=== PATIENT | male | born 1955 | race Caucasian/White ===

== ENCOUNTER 2024-01-31 11:18 | Emergency (ER) | payer MEDICARE, BC ==
[~2024-01-31] VITALS: Ht 170.2 cm; Wt 86.4 kg
[~2024-01-31 11:18] MED LIST: ASPI325T6 PO; ASPIRIN 81M81 MG/TA2; BETAPACE 120MG120 MG PO; CEPHALEXIN500 M1 PO; COREG 3.123.125 MG/T PO; ELIQUIS 5MG PO; LIPITOR 10MG10 MG PO; LIPITOR 40MG TA40 MG PO; MICROZIDE12.5 MG PO; NORCO 325 MG-7.1 TAB PO; PRINIVIL5 MG PO; ROXICODONE 55 MG/TAB PO; TOPROL XL 50MG50 MG PO; TYLENOL 500MG500 MG PO; ZESTRIL40 MG PO
[2024-01-31 11:28] VITALS: TEMP 97.7
[2024-01-31] MEDS ORDERED: NS 1,000 ML IV ONE (12:15)
[2024-01-31 12:49] LABS: HEMOGLOBIN 10.3 g/dl (13.5-18.0); MEAN CELL VOLUME 90 fl (80.0-100.0); MEAN CORPUSCULAR HEMOGLOBIN 30 pg (27-31); MEAN CORPUSCULAR HGB CONC 33 g/dl (33.0-37.0); MEAN PLATELET VOLUME 9.8 fl (7.4-10.4); PLATELET COUNT 261 K/mm3 (130-400); RED BLOOD COUNT 3.47 M/mm3 (4.20-5.60); REDCELL DISTRIBUTION WIDTH-CV 14.3 % (11.5-14.5)
[2024-01-31 12:52] LABS: HEMATOCRIT 31.1 % (42.0-52.0)
[2024-01-31 13:14] LABS: ALANINE AMINOTRANSFERASE 17 U/L (0-55); ALBUMIN 3.3 g/dL (3.4-4.8); ALKALINE PHOSPHATASE 46 U/L (40-150); ANION GAP 10 mmol/L (7-16); AST,SGOT 18 U/L (5-34); BILIRUBIN,TOTAL 1.8 mg/dL (0.2-1.2); BLOOD UREA NITROGEN 23 mg/dL (8-26); CALCIUM 9.7 mg/dL (8.4-10.2); CHLORIDE 100 mEq/L (98-107); CREATININE, serum 0.82 mg/dL (0.72-1.25); GLUCOSE 94 mg/dL (70-99); POTASSIUM 4.7 mEq/L (3.5-4.5); SODIUM 133 mEq/L (136-145); TOTAL PROTEIN 6.6 g/dl (6.2-8.1)
[2024-01-31 13:34] LABS: TROPONIN-I < 0.010 ng/mL (0.00-0.033)
[2024-01-31 13:55] LABS: MAGNESIUM 1.9 mg/dL (1.6-2.6)
[2024-01-31] MEDS ORDERED: Iohexol 300 - 100 ML VIAL IV ONE (14:23)
[2024-01-31] MEDS ORDERED: NS 100 ML IV SCH (14:28)
[2024-01-31] MEDS ORDERED: fentaNYL 50 MCG/ML 2 ML VIAL IV ONE (14:45)
[2024-01-31 15:06] LABS: PH 5.5 (5.0-8.5); URINE APPEARANCE CLEAR (CLEAR/HAZY); URINE BLOOD NEGATIVE (NEGATIVE); URINE COLOR YELLOW (YELLOW); URINE GLUCOSE NEGATIVE (NEGATIVE); URINE KETONE TRACE (NEGATIVE); URINE NITRATE NEGATIVE (NEGATIVE); URINE PROTEIN(semi-quant) NEGATIVE (NEGATIVE)
[2024-01-31 15:46] LABS: COLLECTION METHOD CLEAN CATCH
[2024-01-31 18:14] VITALS: BP 127/69; PULSE 84
== END 2024-01-31 18:20 | disposition home or self-care (01) ==
LOC: COL.ER 11:18
PROVIDERS: Family Medicine
DX: R55 Syncope and collapse (principal)
CPT/HCPCS: J3010; J7030; Q9967

== ENCOUNTER → 2024-02-19 | Outpatient (CLI) | payer MEDICARE ==
[~2024-02-19] MED LIST changes: +Albuterol 0.083% Neb Soln 2.5 MG/3 ML UD IH ONE; +Gadoterate 20 ML VIAL IV ONE; +Iohexol 300 - 100 ML VIAL IV ONE; +NS 100 ML IV SCH
== END ==
LOC: COL.RAD 12:12
DX: R06.02 Shortness of breath (principal); R55 Syncope and collapse; R42 Dizziness and giddiness; Z86.73 Personal history of transient ischemic attack (TIA), and cerebral infarction without residual deficits
CPT/HCPCS: A9575; Q9967